=== PATIENT | male | born 1955 | race Caucasian/White ===

== ENCOUNTER 2025-02-13 10:08 | Emergency (ER) | payer MEDICARE ==
[~2025-02-13] VITALS: Ht 185.4 cm; Wt 95.8 kg
[2025-02-13] MEDS ORDERED: PANT40TA29 PO (10:40)
[2025-02-13] MEDS ORDERED: VALS1TAB67 PO (10:40)
[2025-02-13] MEDS ORDERED: MAGN400T2 PO (10:40)
[2025-02-13] MEDS ORDERED: ROSU40TA81 PO (10:40)
[2025-02-13] MEDS ORDERED: SUCR1TA PO (10:40)
[2025-02-13] MEDS ORDERED: ASPI81CH33 PO (10:40)
[2025-02-13] MEDS ORDERED: EZET10TA57 PO (10:40)
[2025-02-13] MEDS ORDERED: METO1TAB87 PO (10:40)
[2025-02-13] MEDS: ONDANSETRON 4MG/2ML VIAL IV ONE (10:50)
[2025-02-13 11:25] LABS: BASO # 0.0 10^3/uL (0.0-0.2); BASO % 0.3 % (0.0-1.0); EOS # 0.0 10^3/uL (0.0-0.5); EOS % 0.1 % (0.0-3.0); LYMPH # 0.3 10^3/uL (1.5-5.0); LYMPH % 2.6 % (24.0-44.0); MONO # 0.9 10^3/uL (0.0-0.8); MONO % 7.9 % (2.0-8.0); NEUTROPHILS # 10.1 10^3/uL (1.5-8.5); NEUTROPHILS % 88.6 % (36.0-66.0); PLATELET COUNT, AUTOMATED 150 10^3/uL (150-450)
[2025-02-13] MEDS ORDERED: ISOVUE-370 76% 100 ML VIAL As Ordered ONE (11:27)
[2025-02-13 11:49] LABS: ALT/SGPT 161 U/L (7.0-40); AST/SGOT 155 U/L (<34); CALCIUM LEVEL 8.9 MG/DL (8.3-10.6); CARBON DIOXIDE LEVEL 23 MMOL/L (20-31); CHLORIDE LEVEL 99 MMOL/L (98-107); CREATININE FOR GFR 1.10 MG/DL (0.70-1.30); GLOMERULAR FILTRATION RATE 73.6 (>49); POTASSIUM SERUM 3.9 MMOL/L (3.5-5.1); SODIUM LEVEL 134 MMOL/L (136-145)
[2025-02-13] MEDS: ACETAMINOPHEN *IV* 1,000 MG in IV 1 EA IV ONE (12:01)
[2025-02-13] MEDS: NS (Normal Saline) 0.9% 1,000 ML IV ONE (12:01)
[2025-02-13 12:54] LABS: KETONE, URINE AUTO RFX NEGATIVE (NEGATIVE); LEUKOCYTE ESTERASE UR AUTO RFX NEGATIVE (NEGATIVE); MUCUS, URINE RFX SMALL (NEGATIVE); NITRITE, URINE AUTO RFX NEGATIVE (NEGATIVE); RBC, URINE AUTO RFX 0 /HPF (0-3); SQUAM EPITHELIAL CELL UR AURFX 0 /HPF (0-6); WBC, URINE AUTO RFX 4 /HPF (0-3)
[2025-02-13] MEDS: PIPERACILLIN/TAZOBACTAM SOD 3.375 GM in DEXTROSE 5% (D5W) ADV/MINI-BAG 50 ML IV ONE ×2 (13:22→19:34)
[2025-02-13 13:40] LABS: CK-MB VALUE MASS < 1.0 NG/ML (<3.6)
[2025-02-13 13:43] LABS: CPK CREATINE PHOSPHOKINASE 94 U/L (46-171)
[2025-02-13 19:45] VITALS: BP 122/62; TEMP 96.7; O2SAT 98
== END 2025-02-13 19:49 | disposition short-term general hospital (02) ==
LOC: M ED 10:08
DX: K80.32 Calculus of bile duct with acute cholangitis without obstruction (principal); I45.81 Long QT syndrome; R16.0 Hepatomegaly, not elsewhere classified; K76.0 Fatty (change of) liver, not elsewhere classified; I10 Essential (primary) hypertension; E78.5 Hyperlipidemia, unspecified; F10.10 Alcohol abuse, uncomplicated; Z79.82 Long term (current) use of aspirin; Z79.899 Other long term (current) drug therapy
CPT/HCPCS: 74177; 74181; 76705; 80047; 80048; 80076; 81001; 82550; 82553; 83605; 83690; 84145; 84484; 85025; 87040; 87077; 87154; 87186; 87486; 87581; 87633; 87798; 93005; 93041; 96365; 96375; 96376; 99285; J0134; J2543; Q9967